=== PATIENT | male | born 1975 | race Caucasian/White ===

== ENCOUNTER 2016-12-11 07:09 | Emergency (ER) | payer MEDICARE ==
[2013-08-10 12:31] VITALS: BMI 23.0
== END 2016-12-11 10:32 | disposition home or self-care (01) ==
LOC: D.ER 07:09
DX: M54.5 Low back pain (principal); J40 Bronchitis, not specified as acute or chronic; K21.9 Gastro-esophageal reflux disease without esophagitis; F17.200 Nicotine dependence, unspecified, uncomplicated

== ENCOUNTER 2018-03-14 22:42 | Emergency (ER) | payer MEDICARE ==
[2018-03-14 22:48] VITALS: Ht 180.3 cm
[2018-03-14 23:32] LABS: BASOPHILS 0.2 % (0-2); EOSINOPHILS 4.7 % (0-7); HEMATOCRIT 40.5 % (42.0-54.0); HEMOGLOBIN 14.2 g/dL (13.5-17.5); IMMATURE GRANULOCYTES 0.2 % (0-5); LYMPHOCYTES 26.2 % (15-50); MCH 30.8 pg (26.0-34.0); MCHC 35.1 g/dL (31.0-37.0); MCV 87.9 fL (80.0-100.0); MEAN PLATELET VOLUME 10.1 fL (7.4-10.4); MONOCYTES 9.7 % (2-11); PLATELET COUNT 218 10x3/uL (130-400); RBC 4.61 10x6/uL (4.20-6.10); RDW 13.4 % (11.5-14.5); WBC 8.7 10x3/uL (4.8-10.8)
[2018-03-14 23:34] LABS: CALC OSMOLALITY 277 mosm/kg (275-300); CALCIUM 8.3 mg/dL (8.5-10.1); CARBON DIOXIDE 24.9 mmol/L (21.0-32.0); CHLORIDE - SERUM 103 mmol/L (98-107); CREATININE - SERUM 1.1 mg/dL (0.6-1.3); GLUCOSE 110 mg/dL (74-106); POTASSIUM - SERUM 3.6 mmol/L (3.5-5.1); SODIUM 139 mmol/L (136-145); UREA NITROGEN 10 mg/dL (7-18); eGFR NON AFRICAN AMERICAN 78 mL/min (90-120)
[2018-03-14] MEDS ORDERED: ZPAK PO (23:52)
[2018-03-14] MEDS ORDERED: PROMETHAZINE W473 ML PO (23:52)
[2018-03-14] MEDS ORDERED: ALBUTEROL SULF8.5 GM INH (23:52)
[2018-03-15 01:17] VITALS: BP 112/70
== END 2018-03-15 01:15 | disposition home or self-care (01) ==
LOC: D.ER 22:42
PROVIDERS: Family Medicine
DX: J40 Bronchitis, not specified as acute or chronic (principal); R09.89 Other specified symptoms and signs involving the circulatory and respiratory systems; F17.200 Nicotine dependence, unspecified, uncomplicated

== ENCOUNTER 2018-03-25 10:47 | Emergency (ER) | payer MEDICARE ==
[~2018-03-25] VITALS: Ht 180.3 cm; Wt 75.0 kg
[~2018-03-25 10:47] MED LIST: ALBUTEROL SULF8.5 GM INH; PROMETHAZINE W473 ML PO; ZPAK PO
[2018-03-25 12:37] VITALS: Ht 180.3 cm; Wt 75.0 kg
[2018-03-25] MEDS ORDERED: SUDAFED 30 MG T30 MG PO (13:52)
[2018-03-25 14:10] VITALS: BP 126/75
== END 2018-03-25 14:10 | disposition home or self-care (01) ==
LOC: D.ER 10:47
DX: J06.9 Acute upper respiratory infection, unspecified (principal); J40 Bronchitis, not specified as acute or chronic; F17.200 Nicotine dependence, unspecified, uncomplicated

== ENCOUNTER 2018-05-27 11:53 | Emergency (ER) | payer MEDICARE ==
[~2018-05-27] VITALS: Ht 180.3 cm; Wt 72.7 kg
[~2018-05-27 11:53] MED LIST changes: +SUDAFED 30 MG T30 MG PO
[2018-05-27 12:02] VITALS: Ht 180.3 cm; Wt 72.7 kg
[2018-05-27] MEDS ORDERED: ZPAK PO (15:53)
[2018-05-27] MEDS ORDERED: PHENERGAN DM SYR5 ML PO (15:53)
[2018-05-27 16:08] VITALS: BP 141/90
== END 2018-05-27 16:08 | disposition home or self-care (01) ==
LOC: D.ER 11:53
DX: J06.9 Acute upper respiratory infection, unspecified (principal); R11.0 Nausea

== ENCOUNTER 2018-08-06 12:16 | Emergency (ER) | payer MEDICARE ==
[~2018-08-06] VITALS: Ht 180.3 cm; Wt 69.1 kg
[~2018-08-06 12:16] MED LIST changes: +PHENERGAN DM SYR5 ML PO
[2018-08-06 12:39] VITALS: Ht 180.3 cm; Wt 69.1 kg
[2018-08-06] MEDS ORDERED: TORADOL10 MG PO (16:05)
[2018-08-06 16:19] VITALS: BP 128/64
== END 2018-08-06 16:13 | disposition home or self-care (01) ==
LOC: D.ER 12:16
DX: M54.2 Cervicalgia (principal)